=== PATIENT | female | born 1985 | race African-American/Black ===

== ENCOUNTER 2022-08-04 20:19 | Emergency (ER) | payer OTHER, SELFPAY ==
[2022-08-04 20:43] VITALS: BP 134/90; BP 138/90; PULSE 95; RESP 17; TEMP 36.4; O2SAT 99; BMI 25.1
[2022-08-04 20:47] VITALS: BP 134/90; PULSE 95; RESP 17; TEMP 36.4; O2SAT 100
--- NOTE | 2022-08-04 21:03 | ED_ITS ---
HPI - Seizure General Chief Complaint: Seizure Stated Complaint: seizure Time Seen by Provider: 08/04/22 21:03 Source: patient Mode of arrival: EMS Limitations: no limitations History of Present Illness HPI Narrative: Patient history of seizure disorder for more than 6 years on Tegretol fairly compliant last seizure was 2 months ago today was at work and started staring felt seizures coming sat down and staff noticed patient had a tonic-clonic seizure lasted for 5 minutes no head injury no tongue no incontinence patient does not remember about the seizure feels sleepy and tired with headache patient under increased stress with poor sleep lately no alcohol, cocaine, tramadol use Seizure History: Yes Place: Work Related Data Previous Rx's Medication Instructions Recorded carbamazepine 200 mg 200 mg PO BID #60 caps 08/04/22 capsule,extended release [id number] Allergies Allergy/AdvReac Type Severity Reaction Status Date / Time No Known Allergies Allergy Verified 08/04/22 21:17 Review of Systems Review of Systems: Yes all other systems are reviewed and are negative PMFSH Past Medical History Medical History Migraines Seizures Social History Social History Smoked in Last 30 Days: Yes Use of substances other than those prescribed or required for medical reasons: Yes Substance Use Type: Marijuana Advance Directives: No Advance Directives Information Provided: No Patient : No Physical Exam Vital Signs: Vital Signs: Last Vital Signs Temp 98.6 F 08/04/22 23:40 Pulse 76 08/04/22 23:40 Resp 18 08/04/22 23:40 BP 127/79 08/04/22 23:40 Pulse Ox 96 08/04/22 23:40 O2 Del Method 08/04/22 23:40 BMI result Body Mass Index 25.1 Appearance: Alert. Oriented X3. No acute distress. Eyes: PERRLA, No Nystagmus ENT: Pharynx normal. Oral Mucosa moist Neck: Normal inspection. Neck supple. CVS: Normal heart rate and rhythm. Pulses normal. Respiratory: No respiratory distress. Equal air entry bilateral, no wheezing/rales/rhonchi Abdomen: Soft and nontender. Bowel sounds are present, no mass palpable, no CVA tenderness Skin: Skin warm and dry. Normal skin color. Normal skin turgor. Extremities: No lower extremity edema. No calf tenderness Neuro: Oriented X 3. No motor deficit. No sensory deficit.No cerebellar signs , cranial nerves II-XII intact Medications Administered Discontinued Medications Generic Name Dose Route Start Last Admin Trade Name Nabeelq PRN Reason Stop Dose Admin Carbamazepine 200 mg 08/04/22 22:23 08/04/22 23:03 Carbamazepine Er 200 Mg Tab.Er.12h PO 08/04/22 22:24 200 mg ONCE ONE Administration Lorazepam 1 mg 08/04/22 21:18 08/04/22 21:56 Lorazepam 2 Mg/Ml Vial IVPUSH 08/04/22 21:19 1 mg ONCE ONE Administration Ondansetron HCl 4 mg 08/04/22 21:51 08/04/22 21:56 Ondansetron Hcl 4 Mg/2 Ml Vial IVPUSH 08/04/22 21:52 4 mg ONCE ONE Administration Medical Decision Making Medical Decision Making [facility] Narrative: Patient says that she takes 200 mg Tegretol twice daily but level was subtherapeutic patient prescription last fill was in 04/20 seems to be noncompliant with no neurologist at this time. Patient was given extra dose of carbamazepine in the ER advised to follow with neurologist will send the prescription also Lab Data [facility] Lab Attestation statement: I reviewed the patient's lab results. 08/04/22 21:31 08/04/22 21:31 Labs: Lab Results 08/04/22 08/04/22 08/04/22 Range/Units 21:31 21:31 21:31 WBC 13.8 H (4.8-10.8) X10*3/uL RBC 4.32 (4.20-5.50) X10*6/uL Hgb 11.6 L (12.0-16.0) g/dl Hct 35.8 L (37.0-47.0) % MCV 82.9 (80.0-98.0) fL MCH 26.9 L (27.0-33.0) pg MCHC 32.4 (31.0-35.0) g/dl RDW 13.6 (11.0-16.0) % Plt Count 254 (160-400) X10*3/uL MPV 9.1 L (9.4-12.3) fL Immature Gran % (Auto) 0.4 (0.0-0.4) % Neut % (Auto) 77.8 H (45-73) % Lymph % (Auto) 14.0 L (20-40) % [place] % (Auto) 6.9 (2-11) % Eos % (Auto) 0.6 (0-4) % Baso % (Auto) 0.3 (0-2) % Lymph # (Auto) 1.9 (1.2-4.9) X10*3/uL [place] # (Auto) 1.0 (0.1-1.2) X10*3/uL Eos # (Auto) 0.1 (0.0-0.4) X10*3/uL Baso # (Auto) 0.0 (0.0-0.2) X10*3/uL Abs Immat Gran (auto) 0.06 H (0.00-0.03) X10*3/uL Absolute Neuts (auto) 10.8 H (2.0-8.3) x10*3/uL Absolute Nucleated RBC 0.000 (0.0-0.012) X10*3/uL Nucleated RBC % (auto) 0.0 (0.0-0.2) /100WBC Sodium 138 (135-145) mmol/L Potassium 3.8 (3.3-5.1) mmol/L Chloride 107 (96-108) mmol/L Carbon Dioxide 21 L (22-29) mmol/L Anion Gap 14 (12-20) BUN 14 (9-16) mg/dL Creatinine 0.79 (0.5-1.4) mg/dL Estim Creat Clear Calc 102.9 Estimated GFR > 60 Random Glucose 79 (60-115) mg/dL Calcium 8.9 (8.4-10.2) mg/dL Total Bilirubin 0.3 (0.0-1.0) mg/dL AST 16 (5-31) U/L ALT 12 (0-31) U/L Alkaline Phosphatase 60 (39-117) U/L Total Protein 7.0 (6.5-8.0) g/dL Albumin 4.4 (3.5-5.0) g/dL Carbamazepine 3.3 L* (5.0-12.0) mcg/mL Discharge Plan Discharge Clinical Impression: Epileptic seizure Patient Disposition: Home, Self-Care Instructions: Epilepsy (ED) Additional Instructions: Take your carbamazepine twice daily as prescribed by your neurologist Follow-up with PCP/neurology Prescriptions: New carbamazepine 200 mg capsule, ER multiphase 12 hr 200 mg PO BID Qty: 60 3RF Referrals: Bert Whatley MD [Physician] - 1 week
[2022-08-04 21:42] LABS: MANUAL DIFF FLAG NO
[2022-08-04 21:43] LABS: Basophils Percent Auto 0.3 % (0-2); Eosinophils Absolute Auto 0.1 X10*3/uL (0.0-0.4); Eosinophils Percent Auto 0.6 % (0-4); Hematocrit 35.8 % (37.0-47.0); Hemoglobin 11.6 g/dl (12.0-16.0); Imm Gran Abs Auto 0.06 X10*3/uL (0.00-0.03); Imm Gran Pct Auto 0.4 % (0.0-0.4); Lymphocytes Absolute Auto 1.9 X10*3/uL (1.2-4.9); Mean Corpuscular HGB Conc 32.4 g/dl (31.0-35.0); Mean Corpuscular Hemoglobin 26.9 pg (27.0-33.0); Mean Corpuscular Volume 82.9 fL (80.0-98.0); Mean Platelet Volume 9.1 fL (9.4-12.3); Monocytes Percent Auto 6.9 % (2-11); Neutrophils Absolute Auto 10.8 x10*3/uL (2.0-8.3); Neutrophils Percent Auto 77.8 % (45-73); Platelet Count 254 X10*3/uL (160-400); Red Blood Count 4.32 X10*6/uL (4.20-5.50); Red Cell Distribution Width 13.6 % (11.0-16.0); White Blood Count 13.8 X10*3/uL (4.8-10.8)
[2022-08-04] MEDS: ondansetron HCL 4 MG/2 ML VIAL IVPUSH (21:56)
[2022-08-04] MEDS: LORazepam 2 MG/ML VIAL 1 MG IVPUSH (21:56)
[2022-08-04 21:58] LABS: Alanine Aminotransferase 12 U/L (0-31); Albumin Level 4.4 g/dL (3.5-5.0); Alkaline Phosphatase 60 U/L (39-117); Anion Gap 14 (12-20); Aspartate Amino Transferase 16 U/L (5-31); Bilirubin Total 0.3 mg/dL (0.0-1.0); Blood Urea Nitrogen 14 mg/dL (9-16); Calcium 8.9 mg/dL (8.4-10.2); Carbon Dioxide 21 mmol/L (22-29); Chloride 107 mmol/L (96-108); Creatinine Clr Calc Pharmacy 102.9; Estimated Glomerular Filt Rate > 60; Glucose Random 79 mg/dL (60-115); Potassium 3.8 mmol/L (3.3-5.1); Sodium 138 mmol/L (135-145)
[2022-08-04 22:00] LABS: Carbamazepine Tegretol 3.3 mcg/mL (5.0-12.0)
[2022-08-04] MEDS: carBAMazepine ER 200 MG TAB.ER.12H PO (23:03)
[2022-08-04 23:40] VITALS: BP 127/79; PULSE 76; RESP 18; TEMP 37; O2SAT 96
--- NOTE | 2022-08-05 00:25 | PC.NURSE ---
Nursing assessment: Pt's V/S are stable, pt is a/o x4, Pt's eye pupil were PERRLA, full upper/lower strength on her all extremities, witness reported no injuries from the seizure.
--- NOTE | 2022-08-05 01:15 | PC.NURSE ---
pt refusing to leave her room asking for a ride home. houseperson called and no lift available for her, pt will have to wait in the waiting room for bus or van in am per slate splitting supervisor. pt is seizure free vitals stable. pt refused to sigh discharge papers till she has a ride.
--- NOTE | 2022-08-05 01:23 | PC.NURSE ---
pt refused bus pass, and offered food and drink while in waiting room.
== END 2022-08-05 01:15 | disposition home or self-care (01) ==
PROVIDERS: Emergency Provider Internal Medicine; PCP Nurse Practitioner Family
DX: G40.909 Epilepsy, unspecified, not intractable, without status epilepticus (principal); Z79.899 Other long term (current) drug therapy
CPT/HCPCS: 36415; 80053; 80156; 85025; 99284; J2060; J2405

== ENCOUNTER 2022-10-22 14:19 | Outpatient (REF) | payer OTHER, SELFPAY ==
[2022-10-22 16:17] LABS: Alanine Aminotransferase 18 U/L (0-31); Albumin Level 4.3 g/dL (3.5-5.0); Alkaline Phosphatase 60 U/L (39-117); Anion Gap 10 (12-20); Aspartate Amino Transferase 13 U/L (5-31); Bilirubin Direct 0.1 mg/dL (0.0-0.5); Bilirubin Total 0.5 mg/dL (0.0-1.0); Blood Urea Nitrogen 13 mg/dL (9-16); Carbon Dioxide 24 mmol/L (22-29); Chloride 109 mmol/L (96-108); Estimated Glomerular Filt Rate > 60; Glucose Random 93 mg/dL (60-115); Potassium 4.1 mmol/L (3.3-5.1); Sodium 139 mmol/L (135-145); Total Protein 6.9 g/dL (6.5-8.0)
[2022-10-22 16:21] LABS: Erythrocyte Sedimentation Rate 8 MM/HR (0-20)
[2022-10-23 03:45] LABS: Syphilis Screen Nonreactive (Nonreactive)
[2022-10-23 03:59] LABS: HIV AB/AG Nonreactive (Nonreactive); HIV Num 1 0.07 S/CO (0.00-0.99)
[2022-10-25 01:44] LABS: Lyme Abs Screen <0.90 index
== END 2022-10-22 14:20 | disposition home or self-care (01) ==
LOC: HO.LAB 14:19
PROVIDERS: Visit Provider Psychiatry & Neurology Neurology
DX: Z11.4 Encounter for screening for human immunodeficiency virus [HIV] (principal); G40.909 Epilepsy, unspecified, not intractable, without status epilepticus
CPT/HCPCS: 36415; 80048; 80076; 85652; 86617; 86618; 86780; 87389